=== PATIENT | female | born 1935 | race Caucasian/White ===

== ENCOUNTER 2018-12-23 06:13 | Emergency (ER) | payer MEDICARE ==
[~2018-12-23] VITALS: Ht 165.1 cm; Wt 77.1 kg
[2018-12-23 06:16] VITALS: BP_SYST 155
[2018-12-23] MEDS ORDERED: NACL 0.9% 1,000 ML IV ONE (06:22)
[2018-12-23] MEDS ORDERED: DIPHENHYDRAMINE INJ 50 MG/ML VIAL IVP ONE (06:30)
[2018-12-23] MEDS ORDERED: MORPHINE 4 MG/ML INJ. SYRINGE IVP ONE (06:30)
[2018-12-23] MEDS ORDERED: hydrALAZINE HCL 20 MG/ML VIAL IVP ONE ×2 (07:15→08:30)
[2018-12-23 07:35] LABS: ANION GAP 10 (5-15); CALCIUM 9.3 mg/dL (8.4-11.0); CHLORIDE 106 mmol/L (98-107); CREATININE 1.35 mg/dL (0.55-1.30); GLUCOSE 99 mg/dL (70-99); POTASSIUM 4.7 mmol/L (3.5-5.1); SODIUM SERUM 142 mmol/L (136-145); UREA NITROGEN, BLOOD 21 mg/dL (8-21)
[2018-12-23 07:39] LABS: ALANINE AMINOTRANSFERASE 16 U/L (12-78); ALBUMIN 3.1 g/dL (3.4-4.8); ASPARTATE AMINOTRANSFERASE 21 U/L (10-37); TOTAL BILIRUBIN 0.5 mg/dL (0.0-1.0)
[2018-12-23 08:00] LABS: BASOPHILS % (AUTO) 0.4 % (0.0-2.0); EOSINOPHILS # (AUTO) 0.3 K/uL (0.0-0.4); EOSINOPHILS % (AUTO) 2.3 % (0.0-4.0); HEMATOCRIT 36.9 % (36-48); HEMOGLOBIN 12.9 g/dL (12.0-16.0); LYMPHOCYTES # (AUTO) 1.4 K/uL (1.0-5.5); LYMPHOCYTES % (AUTO) 12.8 % (20.5-51.5); MEAN CORPUSCULAR HEMOGLOBIN 36 pg (27-31); MEAN CORPUSCULAR HGB CONC 35 % (32-36); MEAN CORPUSCULAR VOLUME 104 fL (79.0-98.0); MONOCYTES % (AUTO) 8.6 % (1.7-9.3); NEUTROPHILS # (AUTO) 8.4 K/uL (1.8-7.7); NEUTROPHILS % (AUTO) 75.9 % (40.0-70.0); PLATELET COUNT (AUTO) 283 K/uL (130-430); RED BLOOD CELL COUNT(AUTO) 3.55 MIL/uL (4.2-6.2); RED CELL DISTRIBUTION WIDTH 16.1 % (9.0-15.0)
[2018-12-23 08:05] LABS: INR 1.5 (0.8-1.2); PROTHROMBIN TIME 14.9 SECS (9.5-12.5)
[2018-12-23 08:35] LABS: BILIRUBIN,URINE NEGATIVE (NEGATIVE); BLOOD, URINE NEGATIVE (NEGATIVE); CLARITY/URINE CLEAR (CLEAR); COLOR,URINE YELLOW (YELLOW); GLUCOSE,URINE NEGATIVE (NEGATIVE); KETONES,URINE NEGATIVE (NEGATIVE); LEUKOCYTE ESTERASE ,URINE NEGATIVE (NEGATIVE); NITRITE, URINE NEGATIVE (NEGATIVE); PH,URINE 7.5 (5.0-8.0); PROTEIN URINE 2+ (NEGATIVE); UROBILINOGEN,URINE 0.2 (0.2-1.0)
[2018-12-23 09:30] LABS: BACTERIA,URINE FEW /HPF (None Seen); RBC,URINE 0-3 /HPF (0-3); WBC,URINE 0-3 /HPF (0-3)
[2018-12-23 09:31] LABS: MUCUS,URINE 1+ /LPF (None Seen)
[2018-12-23] MEDS ORDERED: KETOROLAC TROMETHAMINE 30 MG VIAL IVP ONE (09:45)
[2018-12-23] MEDS ORDERED: LORazepam 2 MG/ML VIAL (FOR ER USE) IVP ONE (09:45)
[2018-12-23 10:58] VITALS: BP_SYST 202
== END 2018-12-23 10:38 | disposition short-term general hospital (02) ==
LOC: SED 06:13
DX: N13.30 Unspecified hydronephrosis (principal); I10 Essential (primary) hypertension; I25.2 Old myocardial infarction; Z88.0 Allergy status to penicillin
CPT/HCPCS: 36415; 74176; 80053; 81000; 85025; 85610; 85730; 93005; 96361; 96374; 96375; 96376; 99285; J0360; J1200; J1885; J2060; J2270; J7030

== ENCOUNTER 2020-01-24 19:21 | Emergency (ER) | payer MEDICARE ==
[~2020-01-24] VITALS: Ht 162.6 cm; Wt 77.1 kg
[2020-01-24 19:22] VITALS: BP_SYST 145
--- NOTE | 2020-01-24 19:26 | NUR ---
Placed in room 02 . Placed on surveillance system monitor, blood pressure machine and pulse oximeter. To gown for exam. Side rails up.
--- NOTE | 2020-01-24 19:30 | NUR ---
ER Dr. TOSCANO at bedside examining patient.
--- NOTE | 2020-01-24 19:31 | NUR ---
PT IN [facility] SIDE RAILS UP. NO ACUTE DISTRESS NOTED.
[2020-01-24 20:04] LABS: BASOPHILS # (AUTO) 0.1 K/uL (0.0-0.2); BASOPHILS % (AUTO) 0.7 % (0.0-2.0); EOSINOPHILS # (AUTO) 0.3 K/uL (0.0-0.4); EOSINOPHILS % (AUTO) 2.8 % (0.0-4.0); HEMATOCRIT 33.7 % (36-48); HEMOGLOBIN 11.3 g/dL (12.0-16.0); LYMPHOCYTES % (AUTO) 19.8 % (20.5-51.5); MEAN CORPUSCULAR HEMOGLOBIN 33 pg (27-31); MEAN CORPUSCULAR HGB CONC 33 % (32-36); MEAN CORPUSCULAR VOLUME 99 fL (79.0-98.0); MONOCYTES % (AUTO) 9.7 % (1.7-9.3); NEUTROPHILS # (AUTO) 6.6 K/uL (1.8-7.7); PLATELET COUNT (AUTO) 246 K/uL (130-430); RED CELL DISTRIBUTION WIDTH 15.4 % (9.0-15.0); WHITE BLOOD COUNT (AUTO) 9.9 K/uL (4.8-10.8)
[2020-01-24] MEDS ORDERED: NITROGLYCERIN 1 INCH (GM) OINT. TP ONE (20:45)
[2020-01-24 20:51] LABS: POTASSIUM 3.8 mmol/L (3.5-5.1); SODIUM SERUM 140 mmol/L (136-145)
[2020-01-24 20:52] LABS: ALANINE AMINOTRANSFERASE 16 U/L (12-78); ALBUMIN 3.2 g/dL (3.4-4.8); ANION GAP 9 (5-15); ASPARTATE AMINOTRANSFERASE 17 U/L (10-37); CALCIUM 8.7 mg/dL (8.4-11.0); CHLORIDE 104 mmol/L (98-107); CREATININE 1.68 mg/dL (0.55-1.30); GLUCOSE 100 mg/dL (70-99); TOTAL BILIRUBIN 0.4 mg/dL (0.0-1.0); UREA NITROGEN, BLOOD 22 mg/dL (8-21)
[2020-01-24] MEDS ORDERED: ISO10 PO (21:01)
[2020-01-24] MEDS ORDERED: VENL37.55 PO (21:01)
[2020-01-24] MEDS ORDERED: WARF1TAB2 PO (21:01)
[2020-01-24] MEDS ORDERED: NITR1PAT76 TD (21:01)
[2020-01-24] MEDS ORDERED: LORA-258 PO (21:01)
[2020-01-24] MEDS ORDERED: PANT20TA2 PO (21:01)
[2020-01-24] MEDS ORDERED: NIFE-2 PO (21:01)
[2020-01-24] MEDS ORDERED: GABA-529 PO (21:01)
[2020-01-24] MEDS ORDERED: CARV3.1246 PO (21:01)
[2020-01-24] MEDS ORDERED: LEVO25TA2 PO (21:01)
[2020-01-24] MEDS ORDERED: ROSU10TA2 PO (21:01)
--- NOTE | 2020-01-24 21:01 | NUR ---
Medication reconciliation completed with information provided by EMS.Pt unable to recall the dose of her medications. Any prior medication reconciliation on file was reviewed and corrected.
[2020-01-24] MEDS ORDERED: hydrALAZINE HCL 20 MG/ML VIAL IVP ONE ×2 (22:15→23:15)
[2020-01-24 23:06] LABS: INR 4.1 (0.8-1.2)
[2020-01-24] MEDS ORDERED: HYDROcodone/ACETAMIN 5-325 MG TAB (NORCO/ VICODIN) PO ONE (23:30)
--- NOTE | 2020-01-25 00:29 | NUR ---
PT IN [facility]. MEDICATED FOR BACK PAIN. VSS. SPOKE TO CASTILLO AT [facility]. ACCEPTED TO [facility] EMERGENCY DEPT. IN CARE OF DR. RICHARDSON. PT WILL BE TRANSPORTED [facility]IA [facility] WITH [facility] [employer].
--- NOTE | 2020-01-25 00:30 | NUR ---
Patient to be transferred to [facility]. Is being transferred due to higher level of care. Receiving facility has accepting physician and available space. ER physician has signed transfer form. Patient or responsible constitution party has agreed to transfer and signed form. Patient belongings inventoried and will be sent with patient. Copy of nursing notes, lab reports, EKG, Physicians Orders and X-rays to be sent with patient. Report called to ER [employer] at receiving facility. Receiving physician is DEBRA. [facility] ambulance service has been called for transfer. ETA is [id number].
[2020-01-25 00:51] VITALS: BP_SYST 159
[2020-01-25] MEDS ORDERED: NITROGLYCERIN 1 INCH (GM) OINT. TP ONE (01:15)
[2020-01-25] MEDS ORDERED: NITROGLYCERIN 0.4 MG TAB.SUBL SL ONE ×2 (01:15→01:22)
[2020-01-25] MEDS ORDERED: NITROGLYCERIN 1 INCH (GM) OINT. ONE (01:20)
== END 2020-01-25 00:30 | disposition short-term general hospital (02) ==
LOC: SED 19:21
DX: R07.89 Other chest pain (principal); D68.62 Lupus anticoagulant syndrome; E07.9 Disorder of thyroid, unspecified; I12.9 Hypertensive chronic kidney disease with stage 1 through stage 4 chronic kidney disease, or unspecified chronic kidney disease; N18.9 Chronic kidney disease, unspecified; I25.2 Old myocardial infarction; Z90.710 Acquired absence of both cervix and uterus; Z86.73 Personal history of transient ischemic attack (TIA), and cerebral infarction without residual deficits; Z79.899 Other long term (current) drug therapy; Z88.0 Allergy status to penicillin; Z88.1 Allergy status to other antibiotic agents
CPT/HCPCS: 36415; 71045; 80053; 82550; 83880; 84484; 85025; 85610; 85730; 93005; 96374; 96376; 99285; J0360

== ENCOUNTER 2020-04-14 12:02 | Emergency (ER) | payer MEDICARE ==
[~2020-04-14] VITALS: Ht 167.6 cm; Wt 72.6 kg
[~2020-04-14 12:02] MED LIST: CARV3.1246 PO; GABA-529 PO; ISO10 PO; LEVO25TA2 PO; LORA-258 PO; NIFE-2 PO; NITR1PAT76 TD; PANT20TA2 PO; ROSU10TA2 PO; VENL37.55 PO; WARF1TAB2 PO
[2020-04-14 12:18] VITALS: BP_SYST 198
[2020-04-14] MEDS ORDERED: MORPHINE 4 MG/ML INJ. SYRINGE IM ONE (12:30)
[2020-04-14] MEDS ORDERED: LORazepam 2 MG/ML VIAL IM ONE (13:00)
[2020-04-14 15:10] VITALS: BP_SYST 189
== END 2020-04-14 15:10 | disposition home or self-care (01) ==
LOC: SED 12:02
DX: G89.29 Other chronic pain (principal); M54.5 Low back pain; I25.2 Old myocardial infarction; E07.9 Disorder of thyroid, unspecified; I10 Essential (primary) hypertension; N18.9 Chronic kidney disease, unspecified; Z79.899 Other long term (current) drug therapy; Z88.0 Allergy status to penicillin; Z88.6 Allergy status to analgesic agent; W18.39XA Other fall on same level, initial encounter; Y93.89 Activity, other specified; Y92.89 Other specified places as the place of occurrence of the external cause; Y99.8 Other external cause status
CPT/HCPCS: 72131; 72170; 96372; 99284; J2270

== ENCOUNTER 2021-01-06 08:09 | Emergency (ER) | payer MEDICARE ==
[~2021-01-06] VITALS: Ht 162.6 cm; Wt 68.0 kg
[2021-01-06 08:12] VITALS: BP_SYST 153
[2021-01-06 09:08] LABS: ANION GAP 13 (5-15); CALCIUM 8.9 mg/dL (8.4-11.0); CHLORIDE 105 mmol/L (98-107); CREATININE 1.46 mg/dL (0.55-1.30); GLUCOSE 105 mg/dL (70-99); POTASSIUM 3.9 mmol/L (3.5-5.1); SODIUM SERUM 143 mmol/L (136-145); UREA NITROGEN, BLOOD 30 mg/dL (8-21)
[2021-01-06 09:08] LABS: BILIRUBIN,URINE NEGATIVE (NEGATIVE); CLARITY/URINE CLEAR (CLEAR); COLOR,URINE YELLOW (YELLOW); GLUCOSE,URINE NEGATIVE (NEGATIVE); KETONES,URINE NEGATIVE (NEGATIVE); LEUKOCYTE ESTERASE ,URINE NEGATIVE (NEGATIVE); NITRITE, URINE NEGATIVE (NEGATIVE); PH,URINE 6.5 (5.0-8.0); PROTEIN URINE 1+ (NEGATIVE); UROBILINOGEN,URINE 0.2 (0.2-1.0)
[2021-01-06 09:09] LABS: ACETONE, SERUM NEGATIVE (NEGATIVE)
[2021-01-06 09:13] LABS: BLOOD, URINE TRACE (NEGATIVE)
[2021-01-06 09:14] LABS: ALANINE AMINOTRANSFERASE 22 U/L (12-78); ALBUMIN 3.4 g/dL (3.4-4.8); ASPARTATE AMINOTRANSFERASE 21 U/L (10-37); TOTAL BILIRUBIN 0.4 mg/dL (0.0-1.0)
[2021-01-06 09:24] LABS: BACTERIA,URINE RARE /HPF (None Seen); WBC,URINE 0-3 /HPF (0-3)
[2021-01-06 09:27] LABS: PROTHROMBIN TIME 10.3 SECS (9.5-12.5)
[2021-01-06 09:36] LABS: CKMB RELATIVE INDEX 0.5 (0.0-2.9)
[2021-01-06 09:52] LABS: BASOPHILS # (AUTO) 0.1 K/uL (0.0-0.2); BASOPHILS % (AUTO) 0.4 % (0.0-2.0); EOSINOPHILS # (AUTO) 0.2 K/uL (0.0-0.4); HEMATOCRIT 35.6 % (36-48); HEMOGLOBIN 11.6 g/dL (12.0-16.0); LYMPHOCYTES # (AUTO) 1.6 K/uL (1.0-5.5); LYMPHOCYTES % (AUTO) 13.6 % (20.5-51.5); MEAN CORPUSCULAR HEMOGLOBIN 31 pg (27-31); MEAN CORPUSCULAR HGB CONC 33 % (32-36); MEAN CORPUSCULAR VOLUME 94 fL (79.0-98.0); MONOCYTES # (AUTO) 0.9 K/uL (0.0-1.0); MONOCYTES % (AUTO) 7.5 % (1.7-9.3); NEUTROPHILS # (AUTO) 9.3 K/uL (1.8-7.7); NEUTROPHILS % (AUTO) 76.5 % (40.0-70.0); PLATELET COUNT (AUTO) 266 K/uL (130-430); RED CELL DISTRIBUTION WIDTH 16.3 % (9.0-15.0); WHITE BLOOD COUNT (AUTO) 12.1 K/uL (4.8-10.8)
[2021-01-06 09:55] LABS: RED BLOOD CELL COUNT(AUTO) 3.81 MIL/uL (4.2-6.2)
[2021-01-06] MEDS ORDERED: PHEN-726 PO (10:01)
[2021-01-06] MEDS ORDERED: NITR-85 PO (10:01)
[2021-01-06] MEDS ORDERED: PHENAZOPYRIDINE HCL 100 MG TABLET PO ONE (10:15)
[2021-01-06 10:18] VITALS: BP_SYST 148
[2021-01-06] MEDS ORDERED: PHENAZOPYRIDINE HCL 100 MG TABLET ONE (10:19)
== END 2021-01-06 10:18 | disposition home or self-care (01) ==
LOC: SED 08:09
DX: R30.0 Dysuria (principal); I10 Essential (primary) hypertension; I25.10 Atherosclerotic heart disease of native coronary artery without angina pectoris; Z88.0 Allergy status to penicillin; Z88.8 Allergy status to other drugs, medicaments and biological substances; Z79.899 Other long term (current) drug therapy
CPT/HCPCS: 36415; 71045; 80053; 81000; 82009; 82550; 82553; 82962; 83605; 84484; 85025; 85610-TC; 85730-TC; 93005; 99285